=== PATIENT | female | born 2000 ===

== ENCOUNTER 2024-02-11 09:15 | Outpatient (REF) | payer BC, SELFPAY ==
--- NOTE | ~2024-02-11 | US_ITS ---
EXAMINATION: US PELVIS CLINICAL INFORMATION: Irregular menses; the last menstrual period was on 02/09/2024. COMPARISON: None available. TECHNIQUE: Ultrasound of the pelvis is performed using both transabdominal and transvaginal transducers along with Doppler. Transvaginal imaging is performed due to inadequate visualization transabdominally. FINDINGS: Uterus: The uterus is retroverted and retroflexed. The uterus measures 8.0 x 3.5 x 4.1 cm. The double wall endometrial thickness is 2 mm. The uterus is smooth in contour and has normal myometrial echogenicity. No visible fibroid. Adnexa: Both ovaries are visualized. There is normal color flow to the adnexa. There is no ovarian torsion. There is no pelvic ascites or fluid collection. Right ovary measures 2.5 x 1.5 x 3.0 cm, volume 5.8 mL. A 1.5 cm benign, simple physiologic follicle is noted, for which no imaging follow-up is recommended. Left ovary measures 2.0 x 1.8 x 1.6 cm, volume 2.9 mL. A 1.5 cm benign, simple physiologic follicle is noted, for which no imaging follow-up is recommended. US/US pelvic and transvaginal IMPRESSION: Unremarkable examination.
== END 2024-02-11 09:16 | disposition home or self-care (01) ==
LOC: HO.UMASIMG 09:15
PROVIDERS: Visit Provider Nurse Practitioner Women's Health
DX: N92.6 Irregular menstruation, unspecified (principal)
CPT/HCPCS: 76830; 76856